=== PATIENT | male | born 1955 | race Caucasian/White ===

== ENCOUNTER 2025-03-27 08:10 | Day surgery (SDC) | payer OTHER ==
[~2025-03-27 08:10] MED LIST: ALTACE5 MG PO; BUPIVACAINE HCL/MPF 0.5% 30ML VIAL ONE; CEFAZOLIN SODIUM 1,000 MG VIAL ONE; CRESTOR40 MG PO; KETO10TA2 PO; KETOROLAC TROMETHAMINE 30 MG VIAL ONE; LEVOXYL25 MCG; LIDOCAINE HCL 1%/EPINEPHRINE 20ML VIAL IJ ONE; MIRALAX17 GM PO; PEPCID40 MG PO; PROTONIX40 MG PO; TRAMADOL HCL50 MG PO; TYLENOL ARTHRI650 MG PO
== END 2025-03-27 18:35 | disposition home or self-care (01) ==
LOC: CIR.AMB 08:10
PROVIDERS: ATTEND Surgery
DX: K40.20 Bilateral inguinal hernia, without obstruction or gangrene, not specified as recurrent (principal); K42.0 Umbilical hernia with obstruction, without gangrene
CPT/HCPCS: 49650; 49592; C1781